=== PATIENT | male | born 1930 | race Caucasian/White ===

== ENCOUNTER 2017-03-18 01:17 | Inpatient (IN) | payer MEDICARE ==
[2017-03-18] MEDS ORDERED: Ondansetron HCl/PF 4 MG/2 ML Vial IVP PRN (03:59)
[2017-03-18] MEDS ORDERED: hydrALAZINE 20 MG/ML VIAL SLOW IVP PRN (03:59)
[2017-03-18] MEDS ORDERED: Morphine 2 MG/ML SYRINGE IVP PRN (03:59)
[2017-03-18] MEDS ORDERED: Ondansetron ODT 4 MG TAB PO PRN (03:59)
[2017-03-18] MEDS ORDERED: Morphine 4 MG/ML VIAL SLOW IVP PRN (03:59)
[2017-03-18] MEDS ORDERED: Dextrose 50% Abboject 50 ML SYRINGE SLOW IVP PRN ×2 (03:59)
[2017-03-18] MEDS ORDERED: Dextrose 5% in Water 1,000 ML IV PRN (03:59)
[2017-03-18] MEDS ORDERED: Sodium Chloride 0.9% 1,000 ML IV SCH (04:00)
--- NOTE | 2017-03-18 04:23 | HP ---
DATE OF ADMISSION: 03/18/2017 REQUESTING PHYSICIAN: Dr. Brumfield. ATTENDING SURGEON: Dr. Lovelace. CONSULTATIONS: Orthopedics, Dr. Ricketts. HISTORY OF PRESENT ILLNESS: The patient is an 86-year-old, man, who lives at home with his , who was coming into their house when he slipped and fell and landed on his right side. The linda crowley had immediate right hip and right shoulder pain. EMS was notified and the patient was initiall y brought to the emergency room at [place], where he underwent evaluation and examination and wa s noted to have a humeral head fracture and a right acetabular fracture, at which time, he was transf erred to our facility for further evaluation and orthopedic consultation. ALLERGIES: CODEINE. CURRENT MEDICATIONS: Coreg, Zantac, aspirin, Combigan, terazosin, pantoprazole, and Lumigan. PAST MEDICAL HISTORY: Significant for glaucoma, chronic kidney disease, peptic ulcer disease, type 2 diabetes, CHF, blindness. PAST SURGICAL HISTORY: Ophthalmic surgery for glaucoma, open reduction and internal fixation of righ t hip fracture, cholecystectomy, appendectomy. SOCIAL HISTORY: Patient lives with his spouse in the [place] area. He is a former tobacco user . Denies drug or alcohol use. REVIEW OF SYSTEMS: Ten-point review of systems was negative, unless otherwise stated. PHYSICAL EXAMINATION: VITAL SIGNS: Blood pressure 114/61, heart rate 83, respirations 18, temperature is 98.9, oxygen satu ration is 96% on 2 liters via nasal cannula. GENERAL: The patient is resting comfortably in bed. He is awake. He is alert and oriented x3. His Ariella coma scale is 15. HEENT: Head is normocephalic, atraumatic. Eyes: Extraocular motion is intact, though due to the linda crowley's significant visual loss, it was hard for him to track my finger with a grossly appeared intac t. Ears are atraumatic without discharge. Nose is atraumatic without discharge. Oropharynx is nayan r. NECK: Nontender. Trachea is midline. No JVD. CHEST: Had occasional rhonchi. HEART: Regular rate and rhythm. ABDOMEN: Soft, flat, nontender with active bowel sounds. Pelvis is stable with tenderness to palpat ion to the right hip consistent with his fracture. EXTREMITIES: Neurovascularly intact x4. Right upper extremity is currently immobilized in a sling a nd patient is tender to palpation to the right shoulder consistent with this fracture. By history, t he patient's back is atraumatic and nontender. LABORATORY FINDINGS: White blood cell count 17.5, hemoglobin 11.0, hematocrit 39.2, platelets 193. Sodium 138, potassium 4.3, chloride 102, CO2 of 25, BUN 27, creatinine 1.80, glucose 156. LFTs are u nremarkable. PT 15, INR 1.1, PTT 33. RADIOGRAPHIC REPORTS: CT of the brain without contrast shows no acute intracranial abnormalities. C T of the chest, abdomen and pelvis with IV contrast shows a comminuted right humeral head and neck fr acture and a right acetabular fracture, also reveals an extraperitoneal hematoma in the pelvis. Othe rwise, there were no acute findings. Plain radiographs of AP chest shows no acute intrathoracic abno rmality. AP pelvis shows a displaced fracture involving the right acetabulum and right medial ischiu m, also shows postsurgical changes of the right proximal femur. Two views of right hip showed displa last vertically oriented fracture through the right acetabulum and right ischium. Two views of the ri ght humeral shows a mildly impacted humeral head/neck fracture. ASSESSMENT AND PLAN: 1. Status post ground level fall. 2. Right proximal humerus fracture. 3. Right acetabular fracture. 4. Extraperitoneal hematoma. 5. Leukocytosis without signs of infection. 6. Acute traumatic pain. 7. Hyperglycemia with history of type 2 diabetes. 8. Chronic renal disease. Plan will be to admit the patient to the surgical floor, pain control, pulmonary toilet, gastritis, a nd mechanical DVT prophylaxis and obtain orthopedic consultation in the morning. We will keep the pa tient n.p.o. until he is evaluated by orthopedics. The evaluation, examination, laboratory, and radi ographic findings were discussed with Dr. Lovelace after this dictation.
[2017-03-18 04:40] VITALS: BMI 29.0
[2017-03-18] MEDS: Sodium Chloride 0.9% 1,000 ML IV SCH ×3 (05:51→21:34)
[2017-03-18] MEDS ORDERED: Acetaminophen 1,000 MG in Premix Bag 1 BAG IVPB SCH (06:00)
--- NOTE | 2017-03-18 08:44 | RAD ---
2 VIEWS RIGHT SHOULDER: Date: 03/18/17 COMPARISON: None. HISTORY: Pelvic fracture and right humeral head fracture. Patient fell from standing. FINDINGS: Two views of the right shoulder show a comminuted fracture of the right femoral neck. No dislocation of the humeral head is seen. IMPRESSION: Comminuted proximal right humerus fracture. POS: [facility]
[2017-03-18] MEDS ORDERED: FLU VACC TS2017-18 (>65YR) 0.5 ML SYRINGE IM ONE (09:00)
--- NOTE | 2017-03-18 09:24 | CON ---
DATE OF CONSULTATION: 03/18/2017 CHIEF COMPLAINT: Right shoulder and hip pain. HISTORY OF PRESENT ILLNESS: Jarek is an 86-year-old male who fell yesterday. He has poor vision. He feels that he tripped. He did not lose consciousness. He uses a walker occasionally and sometim es a cane. He landed on his right side. He had immediate pain in the shoulder and hip. He was unab le to ambulate. He was taken to the [facility] by EMS. He was then transferr ed to our facility for his injuries. He has been admitted to the hospital overnight. ALLERGIES: CODEINE. MEDICATIONS: Coreg, Zantac, aspirin, Combigan, terazosin, pantoprazole, and Lumigan. PAST MEDICAL HISTORY: Glaucoma, chronic kidney disease, peptic ulcer disease, type 2 diabetes, CHF a nd blindness. PAST SURGICAL HISTORY: The patient has had previous glaucoma surgery. He has had a right hip fractu re treated operatively in 2004, cholecystectomy and appendectomy. SOCIAL HISTORY: The patient lives independently with his . He denies active tobacco, alcohol, o r drug use. REVIEW OF SYSTEMS: Positive for right shoulder and right hip pain. IMAGES: X-rays were reviewed including a right shoulder x-ray which demonstrates a two-part proximal humerus fracture with medial displacement of the humeral shaft. AP pelvis x-ray, hip x-rays and CT scan is reviewed of the pelvis, which demonstrate a somewhat comminuted transverse type acetabulum fr acture. There is minimal displacement of the articular surface. The patient has severely osteoporot ic appearing bone. The joint surface is congruent. He has evidence of previous hip fracture fixatio n. PHYSICAL EXAMINATION: VITAL SIGNS: Temperature is 97.6, pulse is 86, respiratory rate 16, oxygen saturation 99%, blood pre ssure 118/69. GENERAL: The patient is lying supine and alert, in no apparent distress. RESPIRATORY: Breathing comfortably. ABDOMEN: Soft, nontender, nondistended. MUSCULOSKELETAL: The patient's right arm is in a sling. He has swelling of the shoulder. He is amaya rovascularly intact in the hand. He has palpable radial pulse. The right hip has no laceration or w ound. He has mild swelling of the hip. He has pain with hip motion. He is able flex and extend the foot and ankle. He has a palpable dorsalis pedis pulse. IMPRESSION: Elderly male with an acute right proximal humerus fracture and right acetabulum fracture . PLAN: At this point, I think the patient will be best treated nonoperatively. His humerus fracture can be treated in a sling for comfort. He can gently use the right arm at the elbow, wrist and hand. He should not use the right arm for weightbearing. His acetabular fracture is a more difficult pro blem. Given his osteoporosis and elderly state, I do not think he would tolerate a largely invasive acetabular fracture surgery. This would likely have problems with fixation as well. I think we will treat him for his acetabular fracture nonoperatively with limited weightbearing, toe touch weightbea ring. He can mobilize bed to chair with assistance. [facility] We will re-x-ray his hip and shoulder in approximately 2 weeks to check position and hea ling. He could be treated on a delayed basis with hip arthroplasty if his hip becomes chronically pa inful or has severe posttraumatic arthritis hopefully this will not be the case. I have reviewed bari h options with him in detail.
--- NOTE | 2017-03-18 10:17 | CT ---
PRELIMINARY REPORT/[facility]/EMERGENCY AFTER HOURS PROCEDURE: EXAM: CT Head Without Intravenous Contrast CLINICAL HISTORY: 86 years old, male; Injury or trauma; Fall; Initial encounter; Blunt trauma (contusions or hematomas) ; Consciousness not specified; Patient HX: S/P fall TECHNIQUE: Axial computed tomography images of the head/brain without intravenous contrast. COMPARISON: No relevant prior studies available. FINDINGS: Brain: Mild volume loss No hemorrhage. Moderate white matter disease. No edema. Ventricles: Unremarkable. No ventriculomegaly. Bones/joints: Unremarkable. No acute fracture. Soft tissues: Unremarkable. Sinuses: Air-fluid level in the right maxillary sinus. Polypoid mucosal thickening in the maxillary s inuses Mastoid air cells: Unremarkable as visualized. No mastoid effusion. IMPRESSION: Question right maxillary sinusitis No intracranial hemorrhage.Please see discussion above. Thank you for allowing us to participate in the care of your patient. Dictated and Authenticated by: Hugo George MD 03/18/2017 2:29 AM Central Time ([place] & [place]) FINAL REPORT EMERGENCY AFTER HOURS CT BRAIN WITHOUT CONTRAST: Date: 03/18/17 FINDINGS/IMPRESSION: I agree with the findings and impression given in the preliminary report per [facility] physician. 1. Small vessel ischemic disease without acute intracranial abnormality. 2. Bilateral maxillary sinus disease. POS: [facility]
[2017-03-18] MEDS ORDERED: Morphine 2 MG/ML SYRINGE SLOW IVP PRN (10:19)
[2017-03-18] MEDS: Famotidine/PF 20 mg/2ml Vial SLOW IVP SCH (11:43)
[2017-03-18] MEDS: Acetaminophen 500 MG TAB PO SCH ×2 (12:14→17:56)
[2017-03-18] MEDS: Famotidine 20 MG TAB PO SCH (12:19)
[2017-03-18] MEDS: traMADol HCl 50 MG TAB PO SCH ×2 (14:45→21:33)
--- NOTE | 2017-03-18 17:31 | PRG ---
DATE OF SERVICE: 03/18/2017 ATTENDING PHYSICIAN: Dr. Rony Lovelace. This is Kelly Villanueva, nurse practitioner, dictating daily progress note for Dr. Rony Lovelace. SUBJECTIVE: An 86-year-old male who was admitted early this morning, status post ground level fall with right humeral head fracture and right acetabular fracture, transferred from [place]. He has been seen by Dr. Ricketts, Orthopedic Surgery, who recommends nonoperative treatment of fractures. The patient reports pain is well controlled this morning. He has not begun to work with physical therapy. OBJECTIVE: VITAL SIGNS: Temperature 97.6, pulse 86, respirations 16, O2 sat 99% on 2 liters O2, blood pressure 118/69. GENERAL: Elderly male lying in bed, in no acute distress. HEENT: Normocephalic, atraumatic. PULMONARY: No respiratory distress. Respirations even and unlabored. CARDIOVASCULAR: Regular rate and rhythm. ABDOMEN: Soft, nontender, and nondistended. EXTREMITIES: Pain with movement of right shoulder and right hip. Neurovascularly intact. Cap refill brisk. ASSESSMENT: 1. Status post ground level fall. 2. Right proximal humerus fracture. 3. Right acetabulum fracture. PLAN: 1. Nonoperative treatment of fractures per Orthopedic Surgery. 2. Begin regular diet. 3. Begin PT, OT. 4. Case management consult for discharge planning. The patient will likely need retirement facility. The patient report he wishes to go to retirement facility in [place], [place]. 5. Change analgesia to scheduled Tylenol p.o. as well as tramadol. Morphine for breakthrough. 6. Bowel regimen. 7. Add aspirin for DVT prophylaxis. The patient was seen and examined with Dr. Lovelace, who agrees with the assessment and plan. [facility]
[2017-03-18] MEDS: Senokot S 8.6-50 MG TAB PO SCH (21:33)
[2017-03-19] MEDS: Acetaminophen 500 MG TAB PO SCH ×5 (00:01→23:53)
[2017-03-19 05:39] LABS: #Basophils 0.1 thou/uL (0.0-0.2); #Eosinphils 0.1 thou/uL (0.0-0.7); #Lymphocytes 2.2 thou/uL (1.20-3.40); #Monocytes 1.4 thou/uL (0.11-0.59); #Neutrophils 7.5 thou/uL (1.40-6.50); %Basophils 0.6 % (0.0-1.0); %Eosinophils 0.7 % (0.0-10.0); %Lymphocytes 19.8 % (21.0-51.0); %Monocytes 12.8 % (0.0-10.0); %Neutrophils 66.1 % (42.0-75.0); Hemoglobin 7.4 g/dL (14.0-18.0); Mean Corpuscular HGB CONC 32.6 g/dL (32.0-36.0); Mean Corpuscular Hemoglobin 33.4 pg (27.0-31.0); Mean Platelet Volume 8.8 fL (7.4-10.4); Platelet Count 135 thou/uL (130-400); RBC Distribution Width 12.1 % (11.5-14.5); Red Blood Cell (RBC) Count 2.22 mill/uL (4.70-6.10); White Blood Cell (WBC) Count 11.3 thou/uL (4.8-10.8)
[2017-03-19] MEDS: traMADol HCl 50 MG TAB PO SCH ×6 (05:46→20:27)
[2017-03-19] MEDS: Sodium Chloride 0.9% 1,000 ML IV SCH ×2 (05:46→15:50)
[2017-03-19 06:12] LABS: Anion Gap 10 mmol/L (10-20); BUN (Urea Nitrogen) 30 mg/dL (8.4-25.7); Calc. Creatinine Clearance 38 mL/min (70-130); Calcium 8.1 mg/dL (7.8-10.44); Carbon Dioxide 22 mmol/L (23-31); Chloride 107 mmol/L (98-107); Estimated GFR-MDRD 38; Glucose 121 mg/dL (83-110); Potassium 4.3 mmol/L (3.5-5.1); Sodium 135 mmol/L (136-145)
[2017-03-19] MEDS: Senokot S 8.6-50 MG TAB PO SCH ×2 (08:27→20:27)
[2017-03-19] MEDS: Famotidine/PF 20 mg/2ml Vial SLOW IVP SCH (08:28)
[2017-03-19] MEDS: Polyethylene Glycol 3350 17 GM Packet PO SCH (08:28)
[2017-03-19] MEDS: Famotidine 20 MG TAB PO SCH (08:28)
--- NOTE | 2017-03-19 19:00 | PRG ---
DATE OF SERVICE: 03/19/2017 ATTENDING PHYSICIAN: Dr. Rony Lovelace. This is Kelly Villanueva, nurse practitioner dictating a daily progress note for Dr. Rony Lovelace. SUBJECTIVE: An 86-year-old man who was admitted 1 day ago, status post ground level fall sustaining right humeral head fracture and a right acetabular fracture. He has been seen by Dr. Ricketts, Orth opedics, and nonoperative treatment was recommended. The patient reports pain is well controlled whi le in bed. Pain is increased when working with physical therapy. OBJECTIVE: VITAL SIGNS: Temperature 97.9, pulse 89, respirations 18, O2 sat 97% on room air, blood pressure 134 /69. GENERAL: Elderly male lying in bed, in no acute distress. HEENT: Normocephalic, atraumatic. PULMONARY: No respiratory distress. Respirations even, unlabored. ABDOMEN: Soft, nontender, nondistended. EXTREMITIES: Still with pain with movement of right shoulder and right hip. Neurovascularly intact. Cap refill brisk. ASSESSMENT: 1. Status post ground level fall. 2. Right proximal humerus fracture. 3. Right acetabulum fracture. PLAN: 1. Nonoperative treatment of fractures per Orthopedic Surgery. 2. Continue PT and OT. 3. Case management consult for discharge planning. Patient will likely need shelter facilit y. 4. Change analgesia to scheduled tramadol. 5. Bowel regimen. 6. Continue aspirin for DVT prophylaxis. The patient was seen and examined with Dr. Lovelace, attending trauma surgeon, who agrees with the asses sment and plan.
[2017-03-20] MEDS: traMADol HCl 50 MG TAB PO SCH ×4 (03:27→21:11)
[2017-03-20] MEDS: Acetaminophen 500 MG TAB PO SCH ×4 (06:38→23:38)
[2017-03-20] MEDS: Polyethylene Glycol 3350 17 GM Packet PO SCH (07:58)
[2017-03-20] MEDS: Famotidine 20 MG TAB PO SCH (07:59)
[2017-03-20] MEDS: Famotidine/PF 20 mg/2ml Vial SLOW IVP SCH (07:59)
[2017-03-20] MEDS: Senokot S 8.6-50 MG TAB PO SCH ×2 (07:59→21:07)
[2017-03-20 10:07] LABS: #Basophils 0.1 thou/uL (0.0-0.2); #Eosinphils 0.1 thou/uL (0.0-0.7); #Lymphocytes 1.7 thou/uL (1.20-3.40); #Monocytes 1.4 thou/uL (0.11-0.59); #Neutrophils 8.1 thou/uL (1.40-6.50); %Basophils 0.6 % (0.0-1.0); %Eosinophils 0.7 % (0.0-10.0); %Lymphocytes 15.3 % (21.0-51.0); %Neutrophils 71.3 % (42.0-75.0); Hemoglobin 7.2 g/dL (14.0-18.0); Mean Corpuscular HGB CONC 33.3 g/dL (32.0-36.0); Mean Corpuscular Hemoglobin 34.1 pg (27.0-31.0); Mean Platelet Volume 8.2 fL (7.4-10.4); Platelet Count 143 thou/uL (130-400); White Blood Cell (WBC) Count 11.4 thou/uL (4.8-10.8)
[2017-03-20] MEDS: Bisacodyl 10 MG SUPP PR SCH ×4 (14:20→21:11)
[2017-03-20] MEDS: Ascorbic Acid 500 mg Chewable Tablet PO SCH ×2 (14:20→21:05)
[2017-03-20] MEDS: Ferrous Sulfate 325 MG TAB PO SCH (16:59)
--- NOTE | 2017-03-20 19:22 | PRG ---
DATE OF SERVICE: 03/20/2017 ATTENDING PHYSICIAN: Dr. Rony Lovelace. This is Kelly Villanueva, nurse practitioner, dictating daily progress note for Dr. Rony Lovelace. SUBJECTIVE: An 86-year-old male who was admitted 2 days ago, status post ground level fall sustaining right humeral head fracture and right acetabular fracture. He has been seen by Dr. Ricketts, Orthopedics, nonoperative treatment has been recommended. The patient reports pain is well controlled while in bed; however, he still has a bit of pain when moving around with PT, OT. There have been no acute issues overnight. OBJECTIVE: VITAL SIGNS: Temperature 98.1, respirations 15, pulse 85, O2 sat 92%, blood pressure 128/58. GENERAL: Elderly male, lying in bed, in no acute distress. HEENT: Normocephalic, atraumatic. PULMONARY: No respiratory distress. Respirations even and unlabored. CARDIOVASCULAR: Regular rate and rhythm. Heart sounds normal. ABDOMEN: Soft, nontender, nondistended. EXTREMITIES: Neurovascularly intact. Cap refill brisk. Some pain with movement of right shoulder and right hip. Ecchymosis upper arm, shoulder. ASSESSMENT: 1. Status post ground level fall. 2. Right proximal humerus fracture. 3. Right acetabulum fracture. 4. Acute blood loss anemia PLAN: 1. Nonoperative treatment of fractures per Orthopedic Surgery. 2. Continue PT, OT while in hospital. 3. Continue scheduled analgesia as ordered. 4. Add Dulcolax suppository to bowel regimen as needed. 5. Aspirin for DVT prophylaxis. 6. Case management consult for discharge planning. Plan for patient to go to swing bed in [place]. Anticipate this will occur tomorrow. 7. Add iron, vitamin C. Monitor H/H. The patient was seen and examined with Dr. Lovelace, attending trauma surgeon, who agrees with the assessment and treatment. [facility]
[2017-03-21] MEDS: traMADol HCl 50 MG TAB PO SCH ×2 (03:55→08:33)
[2017-03-21] MEDS: Acetaminophen 500 MG TAB PO SCH (05:56)
[2017-03-21] MEDS: Bisacodyl 10 MG SUPP PR SCH (05:57)
[2017-03-21] MEDS: Ferrous Sulfate 325 MG TAB PO SCH (08:32)
[2017-03-21] MEDS: Senokot S 8.6-50 MG TAB PO SCH (08:33)
[2017-03-21] MEDS: Famotidine 20 MG TAB PO SCH (08:33)
[2017-03-21] MEDS: Polyethylene Glycol 3350 17 GM Packet PO SCH (08:33)
[2017-03-21] MEDS: Famotidine/PF 20 mg/2ml Vial SLOW IVP SCH (08:34)
[2017-03-21] MEDS: Ascorbic Acid 500 mg Chewable Tablet PO SCH (09:00)
[2017-03-21 12:13] VITALS: BP 118/66; TEMP 98.8
[2017-03-21 12:58] LABS: #Eosinphils 0.1 thou/uL (0.0-0.7); #Lymphocytes 1.5 thou/uL (1.20-3.40); #Monocytes 1.5 thou/uL (0.11-0.59); %Basophils 0.2 % (0.0-1.0); %Eosinophils 0.6 % (0.0-10.0); %Lymphocytes 10.9 % (21.0-51.0); %Monocytes 10.6 % (0.0-10.0); %Neutrophils 77.7 % (42.0-75.0); Hemoglobin 7.3 g/dL (14.0-18.0); Mean Corpuscular HGB CONC 33.3 g/dL (32.0-36.0); Mean Corpuscular Hemoglobin 34.2 pg (27.0-31.0); Mean Platelet Volume 8.3 fL (7.4-10.4); Platelet Count 167 thou/uL (130-400); Red Blood Cell (RBC) Count 2.13 mill/uL (4.70-6.10); White Blood Cell (WBC) Count 14.1 thou/uL (4.8-10.8)
--- NOTE | 2017-03-21 13:07 | PRG ---
DATE OF SERVICE: 03/21/2017 ATTENDING PHYSICIAN: Dr. Rony Lovelace. Kelly Villanueva, nurse practitioner, dictating a daily progress note for Dr. Rony Lovelace. SUBJECTIVE: An 86-year-old male, who was admitted 3 days ago, status post ground-level fall sustaini ng a right humeral head fracture and right acetabular fracture. He was evaluated by Dr. Ricketts, O rthopedics, and nonoperative treatment was recommended. Pain has been controlled with adjustments in analgesia. He has been working with physical and occupational therapy. At this time, a [facility] is recommended. Case management has been following for placement and the pat tutu prefers to be discharged to swing bed at [facility]. There have been no acute issues overnig ht. He was started on iron and vitamin C yesterday due to acute blood loss anemia. OBJECTIVE: VITAL SIGNS: Temperature 98.9, pulse 89, respirations 14, O2 sat 91%, blood pressure 126/73. GENERAL: Elderly male lying in bed in no acute distress. HEENT: Normocephalic, atraumatic. PULMONARY: No respiratory distress. Respirations even and unlabored. CARDIOVASCULAR: Regular rate and rhythm. Heart sounds normal. ABDOMEN: Soft, nontender, nondistended. EXTREMITIES: Neurovascularly intact. Cap refill brisk. Resolving ecchymosis to right upper arm and shoulder. ASSESSMENT: 1. Status post ground-level fall. 2. Right proximal humerus fracture. 3. Right acetabular fracture. 4. Acute blood loss anemia. PLAN: 1. Nonoperative treatment of fractures per Orthopedic Surgery. 2. Continue OT/PT while in the hospital. 3. Continue scheduled analgesia as ordered. 4. Continue bowel regimen as ordered. 5. Continue aspirin for DVT prophylaxis. 6. Continue iron and vitamin C. 7. Monitor H and H. 8. Case management is involved for discharge planning. Plan to go to swing bed when accepted. I estes ve discussed this with Dr. Nelson, accepting physician. We will discharge when we get acceptance. The patient was seen and examined with Dr. Lovelace, who agrees with the assessment and plan.
--- NOTE | 2017-03-21 19:32 | DIS ---
DATE OF ADMISSION: 03/18/2017 DATE OF DISCHARGE: 03/21/2017 ADMITTING PHYSICIAN: Dr. Rony Lovelace. CONSULTING PHYSICIAN: Dr. Chad Ricketts, Orthopedics. REASON FOR HOSPITALIZATION: Ground level fall with right hip pain and right shoulder pain. HOSPITAL DIAGNOSES: 1. Right proximal humerus fracture. 2. Right acetabular fracture. 3. Extraperitoneal hematoma. 4. Chronic renal disease. 5. Leukocytosis without signs of infection. 6. Hyperglycemia with history of type 2 diabetes. PROCEDURES: There were no procedures performed during this hospitalization. DISCHARGE CONDITION: Stable to [facility]. FOLLOWUP INFORMATION: The patient is to follow up with Dr. Chad Ricketts in 14 days. BRIEF HISTORY OF HOSPITALIZATION: An 86-year-old male status post ground level fall one day prior to admission. He states that he tripped and fell onto his right side. In the ED, he was diagnosed with an acute right proximal humerus fracture and right acetabular fracture. He was admitted to the hospital by Trauma services. A consult was made with Dr. Chad Ricketts of Orthopedics. Dr. Ricketts did not recommend operative intervention. He was managed nonoperatively on the floor with pain control and a sling for his right upper extremity. He began mobilizing with PT, OT who recommended custodial facility for long-term placement. Case management was consulted and the patient was accepted [facility]. He was discharged on 2016. He is to follow up with Dr. Ricketts as listed above. The patient was seen and examined with Dr. Lovelace, who agreed with assessment and plan for discharge. [facility]
== END 2017-03-21 14:25 | DRG 562 ==
LOC: ERS 01:17 → SJJU 01:30
PROVIDERS: ADMIT Surgery; ATTEND Surgery
DX: S42.291A Other displaced fracture of upper end of right humerus, initial encounter for closed fracture (principal); S32.401A Unspecified fracture of right acetabulum, initial encounter for closed fracture; E11.22 Type 2 diabetes mellitus with diabetic chronic kidney disease; I13.0 Hypertensive heart and chronic kidney disease with heart failure and stage 1 through stage 4 chronic kidney disease, or unspecified chronic kidney disease; I50.9 Heart failure, unspecified; S32.601A Unspecified fracture of right ischium, initial encounter for closed fracture; D62 Acute posthemorrhagic anemia; H40.9 Unspecified glaucoma; N18.9 Chronic kidney disease, unspecified; Z87.891 Personal history of nicotine dependence; W19.XXXA Unspecified fall, initial encounter; E78.5 Hyperlipidemia, unspecified
CPT/HCPCS: 36415; 36416; 70450; 80048; 85025; A4216; G0390; G8978-GP-CN; G8979-GP-CM; G8987-GO-CM; G8988-GO-CK; J0131; S0028